=== PATIENT | male | born 1955 | race Caucasian/White ===

== ENCOUNTER 2024-03-22 12:56 | Inpatient (IN) | payer OTHER, SELFPAY ==
[2024-03-22] VITALS (27 sets, daily range): BP systolic 102–159; BP diastolic 60–102; BMI 28.5; BMI 27.9
--- NOTE | 2024-03-22 10:34 | ED.GENMED ---
History of Present Illness
General
Chief Complaint: Breathing Problem
Source: patient and spouse
Exam Limitations: none
Time Seen by Provider: 03/22/24 10:12
Nursing documentation reviewed up to this point in time: agreed with
History of Present Illness
History of Present Illness:
68 yo male with remote hx DVT, not anticoagulated, hx HLD, PNA last year presents with left lateral rib area, left shoulder pain and SOB with exertion and at rest that started 2 evenings ago. Had trouble sleeping and turning in bed due to sharp
pains in left lateral rib area. Denies n/v/d/c. Denies abdominal pain.
Had Covid vaccine 3 days ago and had general body aches, pain at the site, chills, took Tylenol and by that evening these symptoms were gone. No fever since.
Past History
Past History
ED Past Medical History: Hypercholesterolemia and Other (DVT)
ED Past Surgical History: None
Social History
Tobacco: Non-smoker
Alcohol: None
Personal:
Living: with family
Employment: Retired
Family History
Family History: Negative Early CAD or CAD
Review of Systems
Review of Systems
Allergies reviewed?: Yes
All Other Systems: ROS reviewed and negative except as documented in HPI and ROS
Constitutional: Denies fever
Respiratory: Reports trouble breathing; Denies cough
Cardiac: Reports chest pain; Denies diaphoresis, palpitations or syncope
ABD/GI: Denies abdominal pain, nausea, vomiting or diarrhea
: Denies dysuria or difficulty voiding
Musculoskeletal: Reports other (pain left lateral rib area)
Skin: Reports no symptoms
Neurological: Reports no symptoms
Phy Exam
Physical Exam
Physical Exam:
GENERAL: No acute distress. A&Ox3.
CONSTITUTIONAL: Afebrile.
EYES: Clear, conjunctivae normal
ENMT: moist mucus membranes, Pharynx nl
RESPIRATORY: Regular respirations, nonlabored, tachypneic at 24/min, lungs clear. Pulse ox 96% room air
CARDIOVASCULAR: tachycardia at 128, sinus rhythm, no murmurs, no rubs.
GI: Soft, nontender, normal BS
MUSCULOSKELETAL: Moves with ease. Well perfused.
SKIN: Warm, dry, pink
PSYCH: Normal mood and affect. Well kept, interactive and appropriate
NEUROLOGIC: Awake, alert and oriented. No focal neurological deficits
Scores
Heart Failure Risk
Heart Failure Risk Score: Not Applicable
PE Wells Score
Symptoms of DVT: No
No alternative diagnosis better explains the illness: No
Tachycardia with pulse > 100: Yes
Immobilization (>=3 days) or surgery within previous 4 weeks: No
Prior history of DVT or pulmonary embolism: Yes
Presence of hemoptysis: No
Presence of malignancy: No
Pulmonary Embolism Risk Score: 3.0
Probability of PE: Pt is moderate risk
PESI
Age: 68
Sex: Male
History of cancer: No
History of heart failure: No
History of chronic lung disease: No
Heart rate >/= 110: Yes
Systolic BP <100 mmHg: No
Respiratory rate >/= 30: No
Temperature <36�C/96.8�F: No
Altered mental status (disorientation, lethargy, stupor, or coma): No
O2 saturation <90%: No
Score: 97
Class: Class 3: <106 (moderate mortality 3.2-7.1%)
Course
Orders/Labs/Results
Orders:
Orders
03/22/24 10:12
Electrocardiogram (*1) Urgent
Reason for Study: Chest Pain
Cardiac Monitoring- Treatment ONCE
EKG- Treatment ONCE
IV Insert/Care/Rem.- Treatment PRN
03/22/24 10:30
Complete Blood Count/With Diff Urgent
Comprehensive Metabolic Panel Urgent
D-Dimer Urgent
NT-proBNP Urgent
Protime/PTT Urgent
Comment: ADD ON
Troponin I Urgent
03/22/24 11:16
CT Chest Pe Study Urgent
Comment:
Reason For Exam: elevated dimer, SOB, hx DVT
03/22/24 11:32
Add On- LAB Urgent
Tests Added?: PT/PTT
03/22/24 12:22
Heparin 8,100 units IV NOW STA
03/22/24 12:[address] Non Medication Order As Directed
Physician Order: PTT 6 hours after initial start of Heparin infusion
Above order entered?: Yes
03/22/24 12:30
Heparin 49107 Units/250 ml 25,000 units in 250 ml IV PER PROTOCOL
Weight to be used for heparin protocol in kilograms (kg):: 100.7
Protocol:: DVT/PE
PTT Goal Range to be used:: PTT 73 to 111 seconds
Order type:: Initial
INITIAL Infusion Dose (UNITS/KG/hr) & then follow protocol:: 18 units/kg/hr
Infusion Dose in UNITS/hr & then follow protocol (UNITS/hr):: 1,800
INFUSION RATE in mL/hr & then follow protocol (mL/hr):: 18
For DVT/PE algorithm, re-bolus for low PTT?: Yes
PTT less than or equal to 64 seconds:: Re-bolus 80 units/kg (max 10,000units). Increase by 400 units/hr
(+ 4mL/hr)
PTT 64.1 to 72.9 seconds:: Re-bolus 40 units/kg (max 5,000 units). Increase by 200 units/hr
(+ 2mL/hr)
PTT 73 to 111 seconds:: Target Range. No change in rate.
PTT 111.1 to 130.9 seconds:: Decrease rate by 200 units/hr (- 2 mL/hr)
PTT 131 to 199.9 seconds:: HOLD for 1 hr. Then decrease by 300 units/hr (- 3mL/hr)
PTT greater than or equal to 200 seconds:: HOLD for 2 hrs & Notify Provider. Then decrease by 400 units/hr
(- 4mL/hr)
Lab follow-up:: Each change, PTT q6h until 2 consecutive are therapeutic. Then
PTT daily.
03/22/24 12:32
Admit/Transfer Patient As Directed
Co-Sign Provider:
Level of Care: Inpatient admission
Assign to:: ICU
Physician / Group: Dr Welch
Diagnosis: Pulmonary embolism
Reason for Hospitalization: Patient presented with shortness of breath and found to have PE with right
ventricular strain
Expected length of stay greater than two midnights?: Yes
ELOS- Estimated Length of Stay in days: 2
I certify the patient meets the requirements for IP care: Yes
PRN Pain Medication Management As Directed
May give lesser potent ordered pain med per pt: Yes
preference::
Protocol:: Medication orders for pain may be administered in a
manner that supports deferring to patient preference
when the pt is:
- Requesting an ordered lesser potent pain medication.
Least to most potent pain medications are defined
as: acetaminophen < NSAID < tramadol < opioids
(morphine, oxycodone, hydromorphone).
- Requesting a lesser dose of the same medication IF
ORDERED.
- Requesting a less intrusive route of administration
if both routes are prescribed by the provider (PO <
IV).
03/22/24 12:33
Code Status As Directed
Resuscitation Status: Full Code
PULMONARY CONSULT Urgent
Consulting Provider: Asa Ybarra
Was physician already notified: Yes
Reason for consult: Mult PE's right heart strain
03/22/24 12:45
Heparin 4,000 units IV PRN PRN
Heparin 8,000 units IV PRN PRN
03/22/24 12:53
Consult Electric Truck Crane Operator [Electric Truck Crane Operator Consult] Stat
Consulting Provider: Asa Ybarra
Was physician already notified: Yes
Reason for consult: PE with right heart strain
03/22/24 15:18
Bisacodyl [Dulcolax] 10 mg RECTAL [id number] PRN
Docusate W/Senna [Senokot-S] 1 tablet PO BIDPRN PRN
Polyethylene Glycol Powder [Miralax] 17 grams PO DAILYPRN PRN
03/22/24 15:18
Heparin Protocol- PTT Orders As Directed
PTT per Heparin protocol: -Obtain CBC and baseline PTT - if not already collected.
-Obtain PTT 6 hours from start of infusion. Then, every 6 hours until 2 consecutive
PTT's are therapeutic. Then, PTT Daily.
-With each rate change, obtain PTT every 6 hours until 2 consecutive PTT's are
therapeutic. Then, PTT Daily.
Activity As Directed
Activity Level: Bedrest for limited time
Bedrest duration in hours then activity as indicated above:: 24
Notify MD As Directed
Notify physician if: PTT is greater than or equal to 200.
Vital Signs As Directed
Frequency: Per unit guidelines
03/23/24 02:11
Basic Metabolic Panel IN AM
Complete Blood Count/With Diff IN AM
03/24/24 06:00
Complete Blood Count/No Diff Q2D
Comment: notify provider: Platelet count < 130,000 or decrease by 50% from baseline
03/26/24 06:00
Complete Blood Count/No Diff Q2D
Comment: notify provider: Platelet count < 130,000 or decrease by 50% from baseline
03/28/24 06:00
Complete Blood Count/No Diff Q2D
Comment: notify provider: Platelet count < 130,000 or decrease by 50% from baseline
03/30/24 06:00
Complete Blood Count/No Diff Q2D
Comment: notify provider: Platelet count < 130,000 or decrease by 50% from baseline
04/01/24 06:00
Complete Blood Count/No Diff Q2D
Comment: notify provider: Platelet count < 130,000 or decrease by 50% from baseline
04/03/24 06:00
Complete Blood Count/No Diff Q2D
Comment: notify provider: Platelet count < 130,000 or decrease by 50% from baseline
04/05/24 06:00
Complete Blood Count/No Diff Q2D
Comment: notify provider: Platelet count < 130,000 or decrease by 50% from baseline
04/07/24 06:00
Complete Blood Count/No Diff Q2D
Comment: notify provider: Platelet count < 130,000 or decrease by 50% from baseline
Abnormal Lab Results
03/22/24
10:30
RBC 4.37 L 10^6/uL
(4.70-6.10)
Hct 37.5 L %
(39.0-52.0)
MPV 11.1 H fL
(7.4-10.4)
Absolute Lymphs (auto) 0.7 L 10^3/uL
(1.2-3.4)
Neutrophils % 80.5 H %
(42.2-75.2)
Lymphocytes % 10.9 L %
(20.5-51.1)
PT 15.1 H Sec
(11.4-14.6)
D-Dimer 2.56 H ug/mlFEU
(0.00-0.50)
Glucose 192 H mg/dl
(70-99)
03/22/24 10:30
03/22/24 10:30
Vital Signs
Initial and Last Documented VS:
Initial Vital Signs
Temp Pulse Resp BP Pulse Ox
98.7 F 127 24 133/90 96
03/22/24 09:43 03/22/24 09:43 03/22/24 09:43 03/22/24 09:43 03/22/24 09:43
Last Documented Vital Signs
Temp Pulse Resp BP Pulse Ox
100 F 98 20 125/74 94
03/23/24 19:25 03/23/24 19:25 03/23/24 19:25 03/23/24 19:25 03/23/24 19:25
Lead Cargoman consulted with Physician
Lead Cargoman consulted with physician?: Yes
Name of Physician Consulted: Noh
MDM/Problems Addressed
Differential Diagnosis Includes:
PE, PNA, ACS
MDM/Problems Addressed:
68 yo male with remote hx DVT, not anticoagulated, hx HLD, PNA last year presents with left lateral rib area, left shoulder pain and SOB with exertion and at rest that started 2 evenings ago. Had trouble sleeping and turning in bed due to sharp
pains in left lateral rib area. Denies n/v/d/c. Denies abdominal pain.
Had Covid vaccine 3 days ago and had general body aches, pain at the site, chills, took Tylenol and by that evening these symptoms were gone. No fever since.
Patient is tachycardic and tachypneic, pulse ox 96% room air, afebrile, hemodynamically stable.
10:40 a.m.
SOB, Pleuritic CP, Tachypnea, hx DVT high index of suspicion for PE
O2 2L NC ordered for pulse ox 91% RA, no other change in reassessment
EKG: S1Q3T3 noted
11:15 AM
D-dimer elevated, 2.56, chest PE study ordered, patient and informed. Patient remained stable.
CBC with no clinically significant abnormality
CMP: No clinically significant abnormality
Troponin WLN
BNP WNL
12:15 PM:
Received the following text from the radiologist regarding the PE study: CT demonstrates bilateral pulmonary emboli with right heart strain
Left lower lobe pneumonia versus pulmonary infarction with plural effusion
Pt and notified.
PERT alert called
Heparin protocol instituted, I spoke with
Spoke with on-call pulmonary Dr. Leon, informed of radiology text, he states he will see pt he does not recommend thrombectomy or IV TPA at this time
Pt remains stable
Hospitalist notified of admission
12:[address] Leon at bedside
*Pulse Oximetry
Patient hypoxic: yes
Comment: 92% RA
*EKG
Interpreted by ED Provider?: Yes
EKG Intrepretation Date: 03/22/24
EKG Intrepretation Time: 10:22
Interpretation: abnormal
Heart Rate: 110
Rate: tachycardiac
Rhythm: sinus
[place]: normal axis
Interval: normal interval
QRS Pattern: normal QRS
Ischemia: other (S1Q3T3 Noted)
*Critical Care Note
Total Time (30-74mins, 75-104mins- exclusive of procedures): Not Applicable
ED Attending Note
-
Portions of this chart may have been created with voice recognition software.� Occasional wrong word or��sound alike� substitutions may have occurred due to the inherent limitations of voice recognition software.
Discharge Plan
Departure
Patient Disposition: Admit
Date of Disposition: 03/22/24
Time of Disposition: 12:28
Admit to: ICU
Presentation/result/management discussed w/ accepting MD/DO: Hospitalist
Condition: Serious
Discharge Problem:
Bilateral pulmonary embolism
Interventions
Interventions:
*Risk Screen - Suicide Last Done: 03/22/24 09:43
*General Assessment Last Done: 03/22/24 09:43
*Neglect/Abuse Screening Last Done: 03/22/24 09:43
ED- Fall Risk Assessment Last Done: 03/22/24 10:05
*ED COVID-19 Vaccine History Last Done: 03/22/24 10:03
*Nursing Disposition Last Done: 03/22/24 15:05
ED- Cardiac Assessment Last Done: 03/22/24 10:05
ED- Pulmonary Assessment Last Done: 03/22/24 10:05
Discharge Date and Time
Discharge Date/Time: 03/22/24 15:06
[2024-03-22 10:42] LABS: % Basophils 0.2 % (0-2); % Eosinophils 0.2 % (0-6); % Immature Granulocytes 0.3 % (0-0.5); % Lymphocytes 10.9 % (20.5-51.1); % Monocytes 7.9 % (1.7-9.3); % Neutrophils 80.5 % (42.2-75.2); Absolute Lymphocytes 0.7 10^3/uL (1.2-3.4); Absolute Monocytes 0.5 10^3/uL (0.1-0.6); Absolute Neutrophils 5.3 10^3/uL (1.4-6.5); Hematocrit 37.5 % (39.0-52.0); Hemoglobin 13.2 g/dL (13.0-18.0); Mean Corp Hgb Conc. 35.2 g/dL (33.0-37.0); Mean Corpuscular Hgb 30.2 pg (27.0-31.0); Mean Corpuscular Volume 85.8 fL (80.0-94.0); Mean Platelet Volume 11.1 fL (7.4-10.4); Nucleated Red Blood Cells % 0 % (-); Platelet Count 161 10^3/uL (130-400); Red Blood Cell Count 4.37 10^6/uL (4.70-6.10); Red Cell Dist. Width 13.8 % (11.5-14.5); White Blood Cell Count 6.6 10^3/uL (4.8-10.8)
[2024-03-22 10:56] LABS: ALT (SGPT) 45 U/L (0-50); AST (SGOT) 49 U/L (17-59); Albumin 3.8 g/dl (3.5-5.0); Alkaline Phosphatase 70 U/L (38-126); Blood Urea Nitrogen 12 mg/dl (9-20); Calcium 8.8 mg/dl (8.4-10.2); Carbon Dioxide 22 mmol/L (22-30); Chloride 106 mmol/L (98-107); Glucose 192 mg/dl (70-99); Potassium 3.9 mmol/L (3.5-5.1); Sodium 142 mmol/L (135-145); Total Bilirubin 0.8 mg/dl (0.2-1.3); Total Protein 6.6 g/dl (6.3-8.2); eGFR > 60.00
--- NOTE | 2024-03-22 11:00 | EDRN ---
Pt placed on oxygen at 10:45 at 2lpm via NC.
[2024-03-22 11:06] LABS: D-Dimer 2.56 ug/mlFEU (0.00-0.50)
[2024-03-22 11:07] LABS: NT-proBNP < 20.0 pg/ml; Troponin I < 0.012 ng/ml
--- NOTE | 2024-03-22 11:18 | EDRN ---
Inocencia Killian STAGING TECHNICIAN in to inform pt that he will have a CT PE study.
[2024-03-22 11:44] LABS: INR 1.21; PT 15.1 Sec (11.4-14.6)
[2024-03-22 11:45] LABS: APTT 30.4 Sec (23.4-35.0)
--- NOTE | 2024-03-22 12:08 | EDRN ---
Pt OOB to BR and upon return to stretcher was very tachypneic w/ increased WOB.
--- NOTE | 2024-03-22 12:34 | HPS.HSE ---
Family Physician
-
Family Physician: Virgil Barrett
Chief Complaint
-
Shortness of breath
History of Present Illness
Patient is 68 years old male history of dyslipidemia, obesity, factor V Leiden deficiency came into the hospital with shortness of breath. Patient states he had COVID shot on Sunday and since then he has been feeling not himself and over the
last few days with some shortness of breath and pleuritic discomfort when deep breathing. He had an episode of left lower extremity DVT 6 years ago for which she was treated with warfarin for 6 months and was felt to be related to decreased
mobility. Patient denies any fevers or chills at this time or nausea vomiting or diarrhea. Denies any fevers or chills. In the ER, he had a CTA of chest with bilateral pulmonary emboli associated with right heart strain. PERT alert was
activated. He was referred to hospitalist service for further evaluation.
Medical History
Past Medical History
Past Medical History: Reports Other (DVT in the past, factor V Leiden, dyslipidemia, obesity.)
Past Surgical History: Reports None
Social History
Tobacco: Non-smoker
Alcohol: None
Drug: None
Family History
Family History: Other (History of factor V Leiden on his mother.)
Allergies / Home Medications
Allergies reflects when Allergies were last updated in [facility].
Home Medications with original date entered in [facility]
Allergy/Medication List:
Allergies
Allergy/AdvReac Type Severity Reaction Status Date / Time
No Known Allergies Allergy Verified 03/22/24 09:42
Home Medications
cetirizine 10 mg tablet (Zyrtec) 10 mg PO DAILYPRN PRN allergies 04/04/23
simvastatin 20 mg tablet 20 mg PO QPM 04/04/23
therapeutic multivitamin 1 tab PO DAILY 04/04/23
acetaminophen 325 mg tablet (Tylenol) 650 mg PO Q6HPRN PRN mild pain 03/22/24
Review of Systems
-
A 12 point ROS was completed and negative except as noted: Yes
Physical Exam
Vital Signs
Vital Signs
Temp Pulse Resp BP Pulse Ox
98.7 F 110 27 135/102 95
03/22/24 09:43 03/22/24 12:10 03/22/24 12:10 03/22/24 12:10 03/22/24 12:10
Physical exam:
General: Acutely ill
HEENT: Normocephalic, Atraumatic and Moist Mucous Membranes
Respiratory: Clear to Auscultation; Negative Wheezes, Rales or Rhonchi
Cardiac: Regular Rhythm and tachycardic and S1/S2
GI: Soft, Nontender and Nondistended
Musculoskeletal: No Clubbing, No Cyanosis and No Edema
Neuro: Awake, Alert and Oriented
Psych: Calm
Physical Exam
General: Other
Laboratory Results
-
03/22/24 10:30
03/22/24 10:30
Laboratory Results
PT 15.1 Sec (11.4-14.6) H 03/22/24 10:30
INR 1.21 03/22/24 10:30
APTT 30.4 Sec (23.4-35.0) 03/22/24 10:30
Total Bilirubin 0.8 mg/dl (0.2-1.3) 03/22/24 10:30
AST 49 U/L (17-59) 03/22/24 10:30
ALT 45 U/L (0-50) 03/22/24 10:30
Alkaline Phosphatase 70 U/L (38-126) 03/22/24 10:30
Troponin I < 0.012 ng/ml 03/22/24 10:30
Data Reviewed
-
CT Scan: Image Personally Visualized and interpreted
Lab Data: Labs Reviewed by me
Impression/Plan
-
IMPRESSION:
Patient is 68 years old male with history of factor V deficiency came to the hospital with dyspnea and found to have bilateral PE with right heart strain. Patient at risk of hemodynamic instability and progression of VTE. And risk morbidity
mortality due to acute presentation. He is critically ill and will be admitted to ICU.
PLAN:
Bilateral PE with heart rate strain:
IV heparin drip
Keep n.p.o. until known if requires any procedures
IV fluid
Might require IV thrombolytics
Seen and reviewed CT scan of the chest consistent with bilateral PE
Operating Room Surgical Technologist/pulmonary consult-discussed with school attendance secretary via [place] text today
Factor V deficiency:
Will need to obtain old records
Dyslipidemia:
Will resume statin when taking oral
Obesity:
Lifestyle changes modification
Total Critical Care Time__40___ minutes. I was immediately available to the patient and staff. I personally examined, reviewed labs, diagnostic images/reports, interpretations, treatment plans, discussed patient care with other providers and
family or caregivers (if patient is unable to make decisions), entered orders as appropriate and documented the medical record.
--- NOTE | 2024-03-22 12:40 | EDRN ---
Dr. Welch in room w/ pt at this time.
[2024-03-22] MEDS: HEPARIN 8100 UNITS IV (13:25)
[2024-03-22] MEDS: HEPARIN 25000 UNITS/250 ML IV (13:28)
[2024-03-22] MEDS: LR 1000 IV (13:43)
--- NOTE | 2024-03-22 13:50 | EDRN ---
Pt stood to void at stretcher side and HR increased to 145, Resp rate upto 34 and pt on returning to lie down was w/ increased WOB and using accessory muscles to breathe.
--- NOTE | 2024-03-22 14:55 | EDRN ---
Report called to [facility] JOCKEYPACO Roberson.
--- NOTE | 2024-03-22 17:00 | PTCARENOTE ---
Pt received from ED via stretcher; transferred over to unit bed by nursing staff. AAOx3. Reporting tolerable 2/10 pain at upper left lateral chest. Hard of hearing with hearing aids in place. Sinus tach on monitoring manager. HR: 100s - 110s at rest.
Trace pitting LE edema. Palpable radial and pedal pulses. SaO2 94% on 2L NC. Tachypneic, RODRIGEZ, shallow breaths. (+) bowel sounds. Pt expressing appetite. Heparin gtt infusing @ 1800 units/hr LR infusing @ 85ml/hr. Pt advanced from NPO to regular diet.
--- NOTE | 2024-03-22 17:24 | CON.INTV ---
Consultation
Consultation Request
Date/Time Consultation Requested: 03/22/2024
Date/Time Consultation Performed: 03/22/2024
Requesting Provider: Dr. Welch
Performing Provider: Dr. Asa Lawton
Reason for Consultation: Acute pulmonary embolism
Medical History
-
History of Present Illness:
68-year-old man with history of dyslipidemia, obesity, factor V Leiden deficiency came to the hospital complaining of progressive shortness of breath. Patient reports having COVID vaccine last Sunday and since then he has been feeling not
himself and over the last few days with some shortness of breath and pleuritic chest discomfort.
He does report prior DVT 6 years ago for which treated for 6 months of anticoagulation. Evaluation including a CT angiogram of the chest that demonstrated bilateral pulmonary embolism with right ventricular strain.
Patient does report that shortness of breath started about 1 month and a half ago. Just worse over the last several days associated with pleuritic type chest pain.
Denies any leg edema
Past Medical History
Past Medical History: Other (See assessment and plan factor V Leiden deficiency)
Social History
Tobacco: Non-smoker
Alcohol: None
Drug: None
Family History
Family History: Reviewed & Not Pertinent
Allergies / Home Medications
Allergies
Allergy/AdvReac Type Severity Reaction Status Date / Time
No Known Allergies Allergy Verified 03/22/24 09:42
Home Medications
�Medication �Instructions �Recorded �Confirmed �Last Taken �Type
cetirizine 10 mg tablet (Zyrtec) 10 mg PO DAILYPRN PRN allergies 04/04/23 03/22/24 03/21/24 History
simvastatin 20 mg tablet 20 mg PO QPM 04/04/23 03/22/24 03/21/24 History
therapeutic multivitamin 1 tab PO DAILY 04/04/23 03/22/24 03/22/24 History
acetaminophen 325 mg tablet 650 mg PO Q6HPRN PRN mild pain 03/22/24 03/22/24 03/21/24 History
(Tylenol)
Review of Systems
-
History Source: Patient
All other systems: Negative unless noted
Vitals / Labs / Diagnostic Testing
Vital Signs
Temp Pulse Resp BP Pulse Ox
98.7 F 112 28 142/91 92
03/22/24 09:43 03/22/24 17:00 03/22/24 17:00 03/22/24 17:00 03/22/24 17:00
Lab Data
03/22/24 10:30
03/22/24 10:30
Laboratory Results
03/22/24 03/22/24
10:30 12:23
PT 15.1 H
INR 1.21
APTT 30.4 Cancelled
Diagnostic Testing:
Physical Exam
-
HEENT: Normocephalic
Cardiovascular: S1/S2
Respiratory: Clear and Non-Labored Respirations
GI: Soft and Non Distended
Neurology: Awake, Oriented and AO x 3
Skin: Warm
General: Comfortable
Assessment
-
Acute pulmonary embolism-unprovoked
CT angiogram reviewed: Peripheral bilateral pulmonary embolism. No central component. Possible RV strain
Recent COVID-vaccine
Negative troponin
Normal proBNP
Pleuritic type pain: Infiltrates on CAT scan suggestive of pulmonary infarct. Associated left pleural effusion.
Conditions present prior admission:
Dyslipidemia
Obesity
Factor V Leiden deficiency
Assessment and plan:
Bilateral pulmonary embolism with associated significant pleuritic type chest pain. Mild RV strain.
On further discussion symptoms have been more subacute. Started about 1 month and a half ago. Progressive shortness of breath. Worsened over the last 4 to 6 days associated with pleuritic type chest pain.
Mildly tachycardic
Normotensive
No significant oxygen requirements
-
Patient reports that symptoms started after obtaining COVID-vaccine recently.
Prior history of distant DVT 6 years ago for which he completed 6 months of anticoagulation. Has history of factor V Leiden deficiency.
No other risk factors other than obesity.
No family history
Reports being up-to-date with sex/age-appropriate cancer screening
-
At this point did not recommend thrombolysis.
Oxygen for mentation as needed
Monitor hemodynamics
Continue heparin drip-follow PTT.
Hopefully can transition to Oral anticoagulation in the next 24 to 48 hours depending on symptoms/clinical situation
will check lower extremity Doppler
-
Analgesia for pleuritic type chest pain
Follow pleural effusion-will repeat chest x-ray in 48 hours.
Eventually will need repeat imaging of the chest to document resolution of infiltrates that are likely pulmonary infarcts.
-
Will follow

Data reviewed:
-
CT [id number]/2024:
1). There are bilateral peripheral pulmonary emboli associated with right heart strain.There are bilateral peripheral pulmonary emboli involving right lower lobe, left lower lobe, right middle lobe and right upper lobe branches. No central component
2). There is moderate confluent parenchymal airspace disease at the basilar portions of the lingula and left lower lobe which may be pulmonary infarction or pneumonia with small associated left pleural effusion
3). There is interstitial airspace disease at the right lung base which may be dependent atelectasis or less likely pulmonary infarct
-
CT chest 04/04/2023:
1. No evidence of pulmonary embolism or thoracic aortic dissection.
2. Mild airspace consolidation within the left lower lobe, which may represent pneumonia or subsegmental atelectasis. Small adjacent left pleural effusion.
3. Hazy groundglass opacity within the lingular segment, also suggestive of infectious or inflammatory alveolitis.
4. Mild right basilar subsegmental atelectasis.
5. Anterior wedging of several midthoracic vertebral bodies, which may represent acute or chronic compression fractures. Please correlate with symptoms in this area.
[2024-03-22] MEDS: LIPITOR 10 MG PO (17:44)
[2024-03-22] MEDS: TYLENOL 650 MG PO (19:54)
[2024-03-22 20:06] LABS: APTT 104.4 Sec (23.4-35.0)
[2024-03-23] VITALS (17 sets, daily range): BP systolic 106–160; BP diastolic 59–93; BMI 27.7
[2024-03-23] MEDS: LR 1000 IV (01:30)
[2024-03-23 02:29] LABS: % Basophils 0.5 % (0-2); % Eosinophils 0.9 % (0-6); % Immature Granulocytes 0.3 % (0-0.5); % Lymphocytes 21.3 % (20.5-51.1); % Monocytes 12.3 % (1.7-9.3); % Neutrophils 64.7 % (42.2-75.2); Absolute Eosinophils 0.1 10^3/uL (0-0.7); Absolute Lymphocytes 1.4 10^3/uL (1.2-3.4); Absolute Monocytes 0.8 10^3/uL (0.1-0.6); Absolute Neutrophils 4.3 10^3/uL (1.4-6.5); Hematocrit 33.3 % (39.0-52.0); Hemoglobin 11.9 g/dL (13.0-18.0); Mean Corp Hgb Conc. 35.7 g/dL (33.0-37.0); Mean Corpuscular Hgb 30.3 pg (27.0-31.0); Mean Corpuscular Volume 84.7 fL (80.0-94.0); Mean Platelet Volume 11.6 fL (7.4-10.4); Nucleated Red Blood Cells % 0 % (-); Platelet Count 166 10^3/uL (130-400); Red Blood Cell Count 3.93 10^6/uL (4.70-6.10); Red Cell Dist. Width 13.9 % (11.5-14.5); White Blood Cell Count 6.6 10^3/uL (4.8-10.8)
[2024-03-23 02:37] LABS: APTT 117.2 Sec (23.4-35.0)
[2024-03-23 03:00] LABS: Blood Urea Nitrogen 12 mg/dl (9-20); Calcium 8.2 mg/dl (8.4-10.2); Carbon Dioxide 23 mmol/L (22-30); Chloride 107 mmol/L (98-107); Estimated Creatinine Clearance 93 ml/min; Glucose 131 mg/dl (70-99); Potassium 3.7 mmol/L (3.5-5.1); Sodium 140 mmol/L (135-145); eGFR > 60.00
--- NOTE | 2024-03-23 04:51 | PTCARENOTE ---
Initial assessment as documented. Pt desat to 87% while asleep on 2L NC, increased to 4L. Breath sounds clear/diminished. Pain 2/10 at times, worse with movement. Heparin gtt titrated as ordered. Safe environment maintained, call gomez within reach.
[2024-03-23] MEDS: TYLENOL 650 MG PO (07:31)
--- NOTE | 2024-03-23 08:13 | W.PN.HOSP.TC ---
Addendum entered and electronically signed by Shree Welch MD 03/25/24 09:01:
B/L PE with Right Heart Strain only
Original Note:
Today's Communication/Plan
-
Anticoagulation. Wean oxygen.
Assessment / Plan
Assessment / Plan
Physical exam:
General: Acutely ill but nontoxic appearance
HEENT: Normocephalic, Atraumatic and Moist Mucous Membranes
Respiratory: Clear to Auscultation; Negative Wheezes, Rales or Rhonchi
Cardiac: Regular Rhythm and S1/S2
GI: Soft, Nontender and Nondistended
Musculoskeletal: No Clubbing, No Cyanosis and No Edema
Neuro: Awake, Alert and Oriented
Psych: Calm
A/P:
Bilateral PE with possible heart rate strain:
Continue IV heparin drip and can transition to oral anticoagulant tomorrow
Per pulmonary suspicion for subacute and no need for thrombolytics
He has remained hemodynamically stable
Transfer out of ICU today
Checking Doppler lower extremities--> negative for DVT
Stop IV fluids
Appreciated pulmonary consult
Chest pain related to above and possible right infarcts:
Analgesia as needed
Acute hypoxic respiratory insufficiency:
Continue anticoagulation
Wean oxygen-currently on 4 L
Incentive spirometry
PT eval
Left Pleural effusion:
Plan to repeat chest x-ray tomorrow to reevaluate
Factor V Leiden deficiency:
Will need to obtain old records
Elevated blood pressure readings:
No need for any antihypertensive at the moment and discussed with patient.
Also avoid hypotension in the setting of PE.
Will reevaluate and if persistent would reconsider.
Hyperlipidemia:
Continue statins
Obesity:
Lifestyle changes modification
DVT prophylaxis:
Currently on treatment
CODE STATUS:
Full code
Time spent 52 min
Anticipated Discharge: 24 - 48 hours
Subjective/Interval History
-
Date of Service: March 23, 2024
Patient feels better overall. Less shortness of breath. Still remains on oxygen about 4 L
Objective Data
-
Labs:
Laboratory Results
03/23/24 03/23/24
02:11 08:45
WBC 6.6
Hgb 11.9 L
Hct 33.3 L
Plt Count 166
APTT 117.2 H Pending
Sodium 140
Potassium 3.7
Chloride 107
Carbon Dioxide 23
BUN 12
Creatinine 0.9
Glucose 131 H
Calcium 8.2 L
Vital Signs:
Vital Signs
Temp Pulse Resp BP Pulse Ox
98.4 F 90 22 137/85 93
03/23/24 05:19 03/23/24 06:45 03/23/24 06:45 03/23/24 06:00 03/23/24 06:45
I&O
03/22/24 03/23/24 03/24/24
06:59 06:59 06:59
Intake Total 1771 / 1771
Output Total 550 / 550
Balance 1221 / 1221
[2024-03-23 09:03] LABS: APTT 87.8 Sec (23.4-35.0)
--- NOTE | 2024-03-23 09:23 | PTCARENOTE ---
Pt received in bed @ 0700. AAOx3. PRN Tylenol administered for 2/10 left upper lateral chest wall pain. Sinus tach on monitoring tech. HR 100s - 110s at rest. Stood at bedside to urinate; HR to 120s. SaO2 93% on 4L NC. Shallow breaths. Tachypneic.
Dyspneic on exertion. RR 20s - 30s. Good appetite. Ate 100% of dinner. (+) bowel sounds. Stood at bedside to urinate 225ml phil urine. Heparin gtt infusing @ 1600ml/hr. Next PTT for 15:30. LR @ 85ml/hr D/C'd.
--- NOTE | 2024-03-23 10:11 | W.PN.INTV ---
Today's Communication / Plan
Recommendations
Continue heparin drip
Follow PTT
Analgesia for pleuritic type chest pain
Repeat chest x-ray tomorrow
Hopefully transition to oral anticoagulants 03/24/2024
Transferred to telemetry
Assessment
-
68-year-old man with history of distant DVT, history of factor V Leiden deficiency. Not on chronic anticoagulation. Came complaining of 1 month history of progressive shortness of breath. Pleuritic type chest pain, shortness of breath. Found to
have acute bilateral pulmonary embolism on CT angiogram as well as possible left lower lobe pulmonary infarct
Acute pulmonary embolism-unprovoked
CT angiogram reviewed: Peripheral bilateral pulmonary embolism. No central component. Possible RV strain
Recent COVID-vaccine
Negative troponin
Normal proBNP
Pleuritic type pain: Infiltrates on CAT scan suggestive of pulmonary infarct. Associated left pleural effusion.
Conditions present prior admission:
Dyslipidemia
Obesity
Factor V Leiden deficiency
Assessment and plan:
Bilateral pulmonary embolism with associated significant pleuritic type chest pain. Mild RV strain.
On further discussion symptoms have been more subacute. Started about 1 month and a half ago. Progressive shortness of breath. Worsened over the last 4 to 6 days associated with pleuritic type chest pain.
Mild sinus tachycardia
Normotensive-has remained hemodynamically stable through the hospital stay
Minimal oxygen requirements-not worsening.
-
Patient reports that symptoms worsened after obtaining COVID-vaccine 4 to 5 days ago.
Prior history of distant DVT 6 years ago for which he completed 6 months of anticoagulation. Has history of factor V Leiden deficiency.
Multiple family members with factor V Leiden deficiency.
Reports being up-to-date with sex/age-appropriate cancer screening
-
Discussed with patient risks and benefits of thrombolysis. Based on CT scanning appearance, negative cardiac biomarkers, no hemodynamic instability we opted not to proceed with thrombolysis.
Lower extremity Dopplers: Negative for DVT bilaterally.
Patient understood.
Wean down oxygen as able. Home oxygen assessment before discharge. Part of his hypoxemia is to left lower lobe pulmonary infarct with associated mild pleural effusion.
Monitor hemodynamics-Telemetry
Continue heparin drip-follow PTT.
Hopefully can transition to oral anticoagulants 03/24/2024 if patient improved.
-
Analgesia for pleuritic type chest pain-improved.
Repeat chest x-ray tomorrow 03/24/2024 to follow-up on left pleural effusion.
Eventually will need repeat imaging of the chest to document resolution of infiltrates that are likely pulmonary infarcts. Information has been left in the chart for follow-up
-
Will follow
Transfer to telemetry today 03/23/2024

Data reviewed:
-
CT /12/2024:
1). There are bilateral peripheral pulmonary emboli associated with right heart strain.There are bilateral peripheral pulmonary emboli involving right lower lobe, left lower lobe, right middle lobe and right upper lobe branches. No central component
2). There is moderate confluent parenchymal airspace disease at the basilar portions of the lingula and left lower lobe which may be pulmonary infarction or pneumonia with small associated left pleural effusion
3). There is interstitial airspace disease at the right lung base which may be dependent atelectasis or less likely pulmonary infarct
-
CT chest 04/04/2023:
1. No evidence of pulmonary embolism or thoracic aortic dissection.
2. Mild airspace consolidation within the left lower lobe, which may represent pneumonia or subsegmental atelectasis. Small adjacent left pleural effusion.
3. Hazy groundglass opacity within the lingular segment, also suggestive of infectious or inflammatory alveolitis.
4. Mild right basilar subsegmental atelectasis.
5. Anterior wedging of several midthoracic vertebral bodies, which may represent acute or chronic compression fractures. Please correlate with symptoms in this area.
Subjective Dataa
Subjective Data
Date of Service:
Date of Service: March 23, 2024
Chief Complaint: [employer] Follow Up (Acute pulmonary embolism)
Subjective:
Reports improvement pleuritic type chest pain
Denies shortness of breath with light activity
Sinus tachycardia improved
Denies hemoptysis
Denies leg edema
Review of Systems
Cardiopulmonary: Dyspnea (None at breast)
GI: Abdominal Pain (n), Nausea (n) and Vomiting (n)
Objective Data
Data Reviewed
Vital Signs / I&O / Oxygen:
Vital Signs
Temp Pulse Resp BP Pulse Ox
98.0 F 90 22 137/85 93
03/23/24 08:59 03/23/24 06:45 03/23/24 06:45 03/23/24 06:00 03/23/24 08:59
Intake and Output
03/22/24 03/23/24 03/24/24
06:59 06:59 06:59
Intake Total 1771 / 1872 404 / 404
Output Total 550 / 550 225 / 225
Balance 1221 / 1322 179 / 179
SaO2 93
Nasal Cannula flow liters per 4
minute
Physical Exam
General: Comfortable
HEENT: Normocephalic
Cardiovascular: S1-S2
Respiratory: Wheeze (n) and Other (Decreased breath sounds on the left.)
GI: Soft, Non Distended and Non Tender
Neurology: Awake, Alert, Oriented and No Motor Deficits
Skin: Warm
Labs/Micro/Reports
Lab Data
03/23/24 02:11
03/23/24 02:11
Laboratory Results
03/22/24 03/22/24 03/22/24
10:30 12:23 19:46
PT 15.1 H
INR 1.21
APTT 30.4 Cancelled 104.4 H
03/23/24 03/23/24
02:11 08:44
PT
INR
APTT 117.2 H 87.8 H
--- NOTE | 2024-03-23 10:55 | PTCARENOTE ---
Heparin gtt continues @ 1600 units/hr. Incentive spirometer given to patient and education provided. 2,000ml witnessed. Pt downgraded to telemetry.
--- NOTE | 2024-03-23 15:45 | PTCARENOTE ---
pt arrives at 1345 from the ICU with heparin drip running at 1600 units/hr into RFA. pt aaox3 with stable vitals on 4L NC. pt reports overall his respiratory symptoms and pain on left side have subsided and have improved from yesterday, even
improved compared to this Am. pt oriented to department. assessment completed, on pvc monitor with call gomez within reach. stand by assistance provided to ensure safety. care plan continues to be followed.
[2024-03-23 15:50] LABS: APTT 66.6 Sec (23.4-35.0)
[2024-03-23] MEDS: HEPARIN 4000 UNITS IV (15:59)
[2024-03-23] MEDS: LIPITOR 10 MG PO (17:05)
[2024-03-23] MEDS: HEPARIN 25000 UNITS/250 ML IV (20:14)
[2024-03-23 22:24] LABS: APTT 92.4 Sec (23.4-35.0)
[2024-03-24] VITALS (7 sets, daily range): BP systolic 111–132; BP diastolic 67–79; PULSE 97; O2SAT 93
[2024-03-24 04:47] LABS: Hematocrit 33.5 % (39.0-52.0); Hemoglobin 11.9 g/dL (13.0-18.0); Mean Corp Hgb Conc. 35.5 g/dL (33.0-37.0); Mean Corpuscular Hgb 30.4 pg (27.0-31.0); Mean Corpuscular Volume 85.5 fL (80.0-94.0); Platelet Count 164 10^3/uL (130-400); Red Blood Cell Count 3.92 10^6/uL (4.70-6.10); Red Cell Dist. Width 13.7 % (11.5-14.5); White Blood Cell Count 5.9 10^3/uL (4.8-10.8)
[2024-03-24 05:08] LABS: APTT 79.8 Sec (23.4-35.0)
--- NOTE | 2024-03-24 07:39 | W.PN.PUL3 ---
Today's Communication / Plan
-
Continue with parenteral systemic anticoagulation and okay to transition to NOAC today
Case management consult to find if NOAC is affordable (preferred to start Eliquis)
Echo today with mild pulmonary hypertension - repeat echo in 4-6 weeks
Repeat imaging with CXR versus CT chest without contrast in 4 to 6 weeks to follow-up bilateral lower lobe infiltrates and LLL-pleural effusion, likely due to atelectasis
PT/OT
Pain control
Outpatient hematology consult given history of factor V Leiden and now with acute bilateral PE
Will also arrange for outpatient pulmonary follow-up for full PFTs
Wean down O2 as tolerated with goal SpO2 90% or greater; check home O2 assessment prior to discharge
Assessment
-
68-year-old man with history of distant DVT, history of factor V Leiden deficiency. Not on chronic anticoagulation. Came complaining of 1 month history of progressive shortness of breath. Pleuritic type chest pain, shortness of breath. Found to
have acute bilateral pulmonary embolism on CT angiogram as well as possible left lower lobe pulmonary infarct
Impression:
Acute pulmonary embolism-unprovoked with hx of factor V leiden
CT angiogram reviewed: Peripheral bilateral pulmonary embolism with RV strain. No central component
Recent COVID-vaccine
Negative troponin
Normal proBNP
Pleuritic type pain: Infiltrates on CAT scan suggestive of pulmonary infarct. Associated left pleural effusion.
Conditions present prior admission:
Dyslipidemia
Obesity
Factor V Leiden Leiden
Assessment and plan:
Bilateral pulmonary embolism with associated significant pleuritic type chest pain. Mild RV strain.
On further discussion symptoms have been more subacute. Started about 1 month and a half ago. Progressive shortness of breath. Worsened over the last 4 to 6 days associated with pleuritic type chest pain.
No recent long car trips or plane rides; he denies currently having a sedentary lifestyle, and no personal history of malignancy
He has a history of factor V Leiden and does not follow with hematology
Mild sinus tachycardia
Normotensive-has remained hemodynamically stable through the hospital stay
Minimal oxygen requirements-not worsening.
-
Patient reports that symptoms worsened after obtaining COVID-vaccine 4 to 5 days ago.
Prior history of distant LLE DVT 6 years ago for which he completed 6 months of anticoagulation. Has history of factor V Leiden deficiency.
Multiple family members with factor V Leiden deficiency.
Reports being up-to-date with sex/age-appropriate cancer screening
-
Discussed with patient risks and benefits of thrombolysis. Based on CT scanning appearance, negative cardiac biomarkers, no hemodynamic instability we opted not to proceed with thrombolysis.
Lower extremity Dopplers: Negative for DVT bilaterally.
Wean down oxygen as able. Home oxygen assessment before discharge. Part of his hypoxemia is due to left lower lobe pulmonary infarct with associated mild pleural effusion.
Monitor hemodynamics-Telemetry
Continue heparin drip-follow PTT --> can transition to NOAC today assuming case management assist with findings affordable agent (prefer to start eliquis)
Echo performed today (03/24/2024) shows normal RV size and function with mild pulmonary hypertension with PASP 25-30 mmHg assuming an RAP of 3 mmHg --> repeat echo in 4-6 weeks
-
Analgesia for pleuritic type chest pain-improved.
Repeat CXR today (03/24/2024) shows mildly improved left-sided pleural effusion with persistent opacification in the left lower hemithorax; also increased parenchymal opacification of the right lower lobe, likely atelectasis
Eventually will need repeat imaging of the chest to document resolution of infiltrates that are likely pulmonary infarcts. Information has been left in the chart for follow-up
-
pulmonary service will continue to follow

Data reviewed:
-
CTA Chest 03/22/2024:
1). There are bilateral peripheral pulmonary emboli associated with right heart strain.There are bilateral peripheral pulmonary emboli involving right lower lobe, left lower lobe, right middle lobe and right upper lobe branches. No central component
2). There is moderate confluent parenchymal airspace disease at the basilar portions of the lingula and left lower lobe which may be pulmonary infarction or pneumonia with small associated left pleural effusion
3). There is interstitial airspace disease at the right lung base which may be dependent atelectasis or less likely pulmonary infarct
-
CT chest 04/04/2023:
1. No evidence of pulmonary embolism or thoracic aortic dissection.
2. Mild airspace consolidation within the left lower lobe, which may represent pneumonia or subsegmental atelectasis. Small adjacent left pleural effusion.
3. Hazy groundglass opacity within the lingular segment, also suggestive of infectious or inflammatory alveolitis.
4. Mild right basilar subsegmental atelectasis.
5. Anterior wedging of several midthoracic vertebral bodies, which may represent acute or chronic compression fractures. Please correlate with symptoms in this area.
Subjective Data
-
Date of Service:
Date of Service: March 24, 2024
Chief Complaint: Pulmonary Follow Up and VTE Follow Up
Subjective:
Seen and evaluated today at bedside. Pulling 20-50 from incentive spirometer. Currently on 3 L/min nasal cannula. He currently denies shortness of breath. Still having left-sided lower rib/back pain, albeit improved. No chest pain, BALTAZAR,
abdominal pain, nausea, fevers or chills reported.
Review of Systems
General: Other (Negative unless mentioned above)
Objective Data
Data Reviewed
Vital Signs / I&O / Oxygen:
Vital Signs
Temp Pulse Resp BP Pulse Ox
98.6 F 89 18 118/67 93
03/24/24 07:00 03/24/24 07:00 03/24/24 07:00 03/24/24 07:00 03/24/24 07:00
Intake and Output
03/23/24 03/24/24 03/25/24
06:59 06:59 06:59
Intake Total 1771 / 1872 932 / 932
Output Total 550 / 550 225 / 225
Balance 1221 / 1322 707 / 707
SaO2 93
Nasal Cannula flow liters per 3
minute
Physical Exam
General: Respiratory Distress (negative), Comfortable, Chills (negative) and Sweats (negative)
HEENT: Normocephalic and Anicteric
Cardiovascular: S1-S2 and Peripheral Edema (negative)
Respiratory: Wheeze (negative), Crackles (Bibasilar), Rhonchi (negative) and Non-Labored Respirations
GI: Soft, Non Distended, Non Tender and Normal Bowel Sounds
Neurology: Awake, Alert and Tremors (negative)
Skin: Warm, Dry and Jaundice (negative)
Labs/Micro/Reports
Lab Data
03/24/24 04:21
03/23/24 02:11
Laboratory Results
03/23/24 03/23/24 03/23/24
08:44 15:33 22:07
APTT 87.8 H 66.6 H 92.4 H
03/24/24
04:21
APTT 79.8 H
--- NOTE | 2024-03-24 09:13 | PN.CDI ---
CDI
- -
CDI:
Physician Documentation Request
Admit Date: 03/22/24 12:56
Dear Doctor Yuri,
Please review the following and provide your response in the progress notes.
Clinical Indicators:
H+P, 03/22
#...CTA of chest with bilateral pulmonary emboli associated with right heart strain.
#Bilateral PE with heart rate strain:
#IV heparin drip
Based on the above and your clinical assessment, please clarify in the progress notes, the appropriate diagnosis, if significant, that supports the above abnormalities and additional evaluation, monitoring and/or treatment rendered:
Bilateral Pulmonary Embolism with Acute Cor Pulmonale
Right Heart Strain only
Other(please specify)
Use of terms such as suspected, likely, concern for, or probable (associated with a specific diagnosis that is being evaluated, monitored, or treated as if it exists) are acceptable and can be coded in the inpatient setting, when documented at the
time of discharge.
Thank you,
Patience Gardner RN BSN CCDS
CDI Specialist
please contact via tiger text
Please use your independent medical judgment in providing your response.
[2024-03-24 10:53] LABS: Hepatitis C Antibody Negative (Negative)
[2024-03-24] MEDS: HEPARIN 25000 UNITS/250 ML IV (11:35)
--- NOTE | 2024-03-24 14:04 | W.PN.HOSP.TC ---
Today's Communication/Plan
-
See note above
Assessment / Plan
Assessment / Plan
A/P:
Bilateral PE with possible heart rate strain:
Continue IV heparin drip and can transition to oral anticoagulant today ;check the coverage cost
Per pulmonary suspicion for subacute and no need for thrombolytics
He has remained hemodynamically stable
Checking Doppler lower extremities--> negative for DVT
Appreciated pulmonary consult
Check ECHO for RV fn/PSAP
Chest pain related to above and possible right infarcts:
Analgesia as needed
Acute hypoxic respiratory insufficiency:
Continue anticoagulation
Wean oxygen-check home o2 need
Incentive spirometry
PT eval
Left Pleural effusion:
F/u repeat chest x-ray
Factor V Leiden deficiency:
Hx of PE in past
Would recommend life long AC
Hyperlipidemia:
Continue statins
Obesity:
Lifestyle changes modification
DVT prophylaxis:
Currently on treatment
CODE STATUS:
Full code
Anticipated Discharge: Within 24 hours
Subjective/Interval History
-
Date of Service: March 24, 2024
Much improved with pleuritic chest pain. Not short of breath at rest.
Objective Data
-
Labs:
Laboratory Results
03/24/24
04:21
WBC 5.9
Hgb 11.9 L
Hct 33.5 L
Plt Count 164
APTT 79.8 H
Vital Signs:
Vital Signs
Temp Pulse Resp BP Pulse Ox
98.7 F 97 18 117/74 93
03/24/24 11:00 03/24/24 11:00 03/24/24 11:00 03/24/24 11:00 03/24/24 11:00
I&O
03/23/24 03/24/24 03/25/24
06:59 06:59 06:59
Intake Total 1771 / 1872 932 / 932
Output Total 550 / 550 225 / 225
Balance 1221 / 1322 707 / 707
Review of Systems
-
Constitutional: Denies Fever
Respiratory: Denies Cough
Neuro: Denies Dizzy
Physical Exam
-
General: No Apparent Distress
Respiratory: Non Labored Respirations; Negative Accessory Resp Muscle Use
Cardiac: Regular Rhythm and S1/S2
GI: Soft
Neuro: AO x 3
Psych: Calm; Negative Confused
Data Reviewed
-
Labs: Labs Reviewed by me
--- NOTE | 2024-03-24 16:53 | CM ---
Alert awake oriented patient who lives with his Eugenia who lives in a 2 story home with 4 step to enter and 12 steps to bed and bathroom. He is independent in driving and in all activities of daily living.He was offered VN he declined need.He is
on oxygen here. Will need home oxygen test.
No VN hx / No SNF history
Pharmacy [facility] [place]
PCP DR Virgil Barrett
PL[facility] Home Declined VN Watch for oxygen needs
[2024-03-24] MEDS: LIPITOR 10 MG PO (17:53)
[2024-03-25] MEDS: HEPARIN 25000 UNITS/250 ML IV (01:35)
[2024-03-25 03:30] VITALS: BP 114/65
[2024-03-25 06:00] VITALS: BMI 27.6
[2024-03-25 06:43] LABS: APTT 54.3 Sec (23.4-35.0)
[2024-03-25] MEDS: HEPARIN 8000 UNITS IV (07:11)
[2024-03-25 07:48] VITALS: BP 127/80
--- NOTE | 2024-03-25 09:50 | W.PN.PUL3 ---
Today's Communication / Plan
-
Transition to NOAC today
Case management consult to find if NOAC is affordable (preferred to start Eliquis)
Echo showed mild pulmonary hypertension - repeat echo in 4-6 weeks
Repeat imaging with CXR versus CT chest without contrast in 4 to 6 weeks to follow-up bilateral lower lobe infiltrates and LLL-pleural effusion, likely due to atelectasis
PT/OT
Pain control
Outpatient hematology consult given history of factor V Leiden and now with acute bilateral PE
Will also arrange for outpatient pulmonary follow-up for full PFTs
Wean down O2 as tolerated with goal SpO2 90% or greater; home O2 assessment showed he does not need O2 upon discharge
Pt being prepared for DC home today. No additional pulmonary recommendations at this time. We will now sign off. Please call back with any questions.
Assessment
-
68-year-old man with history of distant DVT, history of factor V Leiden deficiency. Not on chronic anticoagulation. Came complaining of 1 month history of progressive shortness of breath. Pleuritic type chest pain, shortness of breath. Found to
have acute bilateral pulmonary embolism on CT angiogram as well as possible left lower lobe pulmonary infarct
Impression:
Acute submassive pulmonary embolism-unprovoked with hx of factor V leiden
CT angiogram reviewed: Peripheral bilateral pulmonary embolism with RV strain. No central component
Recent COVID-vaccine
Negative troponin
Normal proBNP
Pleuritic type pain: Infiltrates on CAT scan suggestive of pulmonary infarct. Associated left pleural effusion.
Conditions present prior admission:
Dyslipidemia
Obesity
Factor V Leiden Leiden
Assessment and plan:
Bilateral pulmonary embolism with associated significant pleuritic type chest pain. Mild RV strain.
On further discussion symptoms have been more subacute. Started about 1 month and a half ago. Progressive shortness of breath. Worsened over the 4 to 6 days [employer] associated with pleuritic type chest pain.
No recent long car trips or plane rides; he denies currently having a sedentary lifestyle, and no personal history of malignancy
He has a history of factor V Leiden and does not follow with hematology
Mild sinus tachycardia
Normotensive-has remained hemodynamically stable through the hospital stay
Minimal oxygen requirements-not worsening.
-
Patient reports that symptoms worsened after obtaining COVID-vaccine 4 to 5 days ago.
Prior history of distant LLE DVT 6 years ago for which he completed 6 months of anticoagulation. Has history of factor V Leiden deficiency.
Multiple family members with factor V Leiden deficiency.
Reports being up-to-date with sex/age-appropriate cancer screening
-
Discussed with patient risks and benefits of thrombolysis. Based on CTA chest appearance, negative cardiac biomarkers, no hemodynamic instability we opted not to proceed with thrombolysis.
Lower extremity Dopplers: Negative for DVT bilaterally.
Wean down oxygen as able. Home oxygen assessment before discharge --> performed on 03/24/2024 showing mirna SpO2 94% with ambulation --> no home O2 needed . Part of his hypoxemia is due to left lower lobe pulmonary infarct with associated mild
pleural effusion.
Monitor hemodynamics-Telemetry
Continue heparin drip-follow PTT --> to transition to NOAC today assuming case management assist with findings affordable agent (prefer to start eliquis)
Echo performed on 03/24/2024 shows normal RV size and function with mild pulmonary hypertension with PASP 25-30 mmHg assuming an RAP of 3 mmHg --> repeat echo in 4-6 weeks
-
Analgesia for pleuritic type chest pain-improved.
Repeat CXR on 03/24/2024 shows mildly improved left-sided pleural effusion with persistent opacification in the left lower hemithorax; also increased parenchymal opacification of the right lower lobe, likely atelectasis
Eventually will need repeat imaging of the chest to document resolution of infiltrates that are likely pulmonary infarcts. Information has been left in the chart for follow-up
-
Pt being prepared for DC home today. No additional pulmonary recommendations at this time. We will now sign off. Please call back with any questions. Thank you for allowing us to be involved in the care of this patient.

Data reviewed:
-
CTA Chest 03/22/2024:
1). There are bilateral peripheral pulmonary emboli associated with right heart strain.There are bilateral peripheral pulmonary emboli involving right lower lobe, left lower lobe, right middle lobe and right upper lobe branches. No central component
2). There is moderate confluent parenchymal airspace disease at the basilar portions of the lingula and left lower lobe which may be pulmonary infarction or pneumonia with small associated left pleural effusion
3). There is interstitial airspace disease at the right lung base which may be dependent atelectasis or less likely pulmonary infarct
-
CT chest 04/04/2023:
1. No evidence of pulmonary embolism or thoracic aortic dissection.
2. Mild airspace consolidation within the left lower lobe, which may represent pneumonia or subsegmental atelectasis. Small adjacent left pleural effusion.
3. Hazy groundglass opacity within the lingular segment, also suggestive of infectious or inflammatory alveolitis.
4. Mild right basilar subsegmental atelectasis.
5. Anterior wedging of several midthoracic vertebral bodies, which may represent acute or chronic compression fractures. Please correlate with symptoms in this area.
Total time spent today was 38 minutes for this encounter. Time includes reviewing laboratory test/imaging results, reviewing pertinent medical records, obtaining and reviewing medical history, performing an appropriate exam, ordering medications,
tests and procedures. Time also includes documentation of this encounter, coordinating patient care and communicating with other healthcare professionals. Total time does not include separately billed tests performed on this date of service.
Subjective Data
-
Date of Service:
Date of Service: March 25, 2024
Chief Complaint: Pulmonary Follow Up and VTE Follow Up
Subjective:
Pt seen and evaluated this AM. No acute events reported from overnight. Denies SOB or chest pain. Eager to go home.
Review of Systems
General: Other (negative unless mentioned above)
Objective Data
Data Reviewed
Vital Signs / I&O / Oxygen:
Vital Signs
Temp Pulse Resp BP Pulse Ox
98.3 F 93 16 127/80 93
03/25/24 07:48 03/25/24 07:48 03/25/24 07:48 03/25/24 07:48 03/25/24 08:30
Intake and Output
03/24/24 03/25/24 03/26/24
06:59 06:59 06:59
Intake Total 932 / 932 720 / 720
Output Total 225 / 225
Balance 707 / 707 720 / 720
SaO2 93
Nasal Cannula flow liters per 1
minute
Physical Exam
General: Respiratory Distress (negative), Comfortable, Chills (negative) and Sweats (negative)
HEENT: Normocephalic and Anicteric
Cardiovascular: S1-S2 and Peripheral Edema (negative)
Respiratory: Wheeze (negative), Crackles (Bibasilar), Rhonchi (negative) and Non-Labored Respirations
GI: Soft, Non Distended, Non Tender and Normal Bowel Sounds
Neurology: Awake, Alert and Tremors (negative)
Skin: Warm, Dry and Jaundice (negative)
Labs/Micro/Reports
Lab Data
03/24/24 04:21
03/23/24 02:11
Laboratory Results
03/25/24
05:19
APTT 54.3 H
[2024-03-25] MEDS: ELIQUIS 10 MG PO (11:02)
[2024-03-25 11:14] VITALS: BP 140/82
--- NOTE | 2024-03-25 11:30 | CM ---
[facility] called for Fátima ospina It is $47.00 a month.
MD and pt notified.
Offered Vn he declined need.
will drive him home.
PLAN Home no needs
--- NOTE | 2024-03-25 11:53 | W.PN.HOSP.TC ---
Today's Communication/Plan
-
dc
Assessment / Plan
Assessment / Plan
A/P:
Bilateral PE with possible heart rate strain:
Per pulmonary suspicion for subacute and no need for thrombolytics
He has remained hemodynamically stable
Doppler lower extremities--> negative for DVT
ECHO Normal RV function,Mildly elevated pulmonary pressures.
Off of oxygen.
Medically stable for discharge.
Transition to oral Eliquis 10 mg twice a day for 7 days and 5 mg twice a day after. Patient advised to follow with pulmonary and as well as oncology because of factor V Leiden deficiency.
Chest pain related to above and possible right infarcts:
Resolved
Acute hypoxic respiratory insufficiency:
resolved
Factor V Leiden deficiency:
Hx of PE in past
Would recommend life long AC
Hyperlipidemia:
Continue statins
Obesity:
Lifestyle changes modification
DVT prophylaxis:
Currently on treatment
CODE STATUS:
Full code
More than 30 minutes spent in discharge including
Final examination of the patient
Summarizing hospital stay
Instructions for continuing care to all relevant caregivers
Preparation of discharge records, prescriptions, and referral forms
Total time spent (in minutes): 35
Anticipated Discharge: Today
Subjective/Interval History
-
Date of Service: March 25, 2024
voicing no specific complaints.
Off of oxygen. Denies shortness of breath or chest pain today.
Objective Data
-
Labs:
Laboratory Results
03/25/24 03/25/24
05:19 13:00
APTT 54.3 H Pending
Vital Signs:
Vital Signs
Temp Pulse Resp BP Pulse Ox
97.9 F 82 16 140/82 95
03/25/24 11:14 03/25/24 11:14 03/25/24 11:14 03/25/24 11:14 03/25/24 11:14
I&O
03/24/24 03/25/24 03/26/24
06:59 06:59 06:59
Intake Total 932 / 932 720 / 720
Output Total 225 / 225
Balance 707 / 707 720 / 720
Review of Systems
-
Abdomen/GI: Denies Bloody Stools or Black Stools
Neuro: Denies Dizzy
Physical Exam
-
General: Comfortable
Respiratory: Non Labored Respirations; Negative Accessory Resp Muscle Use
Cardiac: Regular Rhythm and S1/S2; Negative Tachycardic
Neuro: AO x 3
--- NOTE | 2024-03-25 11:59 | W.DCSUMMARY ---
Discharge Summary
Discharge Data
Date of Admission: 03/22/24
Date of Discharge: 03/25/24
-
Pending Results: No
Hospital Course
primary diagnosis:
Bilateral pulmonary embolism
Secondary diagnosis:
Hyperlipidemia
Factor V Leiden deficiency
Hospital course:
68-year-old male presented for shortness of breath. He had a COVID shot on the Sunday of the week when he got admitted. He also admitted that he was not feeling himself and over the past several days he has been feeling short of breath and also
had some pleuritic discomfort with deep breathing. On further evaluation it was noted that he had a bilateral pulmonary embolism including concern about pulmonary infarcts. There was concern of right heart strain on the CT of the chest. There was
no indication for thrombolysis. He was put on IV heparin and was admitted for further evaluation.
There was no evidence of DVT in the legs. Echo showed RV function to be normal but has mildly elevated right-sided pulmonary pressures of 25-30mmHg. with initiation of anticoagulation his chest pain disappeared and his breathing was better. He
was discharged home on Eliquis.
More importantly he has a history of factor V Leiden deficiency and a remote history of PE. He was advised to follow-up with hematology. I suspect he would require lifelong anticoagulation with second significant thromboembolic event.
Consultants on board:
Pulmonary-Zia Natarajan
Discharge Plan
-
Patient Disposition: Home (Routine Discharge)
Discharge Diagnosis/Procedures: bilateral PE
Diet: Low Cholesterol
Activity: As tolerated and No strenuous activity
Driving Restrictions: As prior to admission
Referrals:
Vipul Murillo DO [Active] - in four to six weeks (For follow up on Factor 5 Leiden deficiency)
Virgil Barrett MD [Family Provider] - in less than 1 week
Asa Ybarra MD [Active] - in three to four weeks
Prescriptions:
New
Eliquis 5 mg tablet
5 mg PO BID Qty: 86 0RF
Rx Instructions:
10mg twice a day for 6 1/2 days and then 5mg twice a day
Continued
cetirizine [Zyrtec] 10 mg Tablet
10 mg PO DAILYPRN PRN (Reason: allergies)
therapeutic multivitamin Tablet
1 tab PO DAILY
simvastatin 20 mg Tablet
20 mg PO QPM
acetaminophen [Tylenol] 325 mg Tablet
650 mg PO Q6HPRN PRN (Reason: mild pain)
Discharge Orders:
Discharge Patient (As Directed); Ordered 03/25/24
Ordered By: Joseph Perez
Discharge Date and Time
Print Language: SERBIAN
== END 2024-03-25 13:44 | disposition home or self-care (01) | DRG 176 ==
LOC: 3 WEST ACU 12:56
PROVIDERS: Registered Nurse; ADMITTING PHYSICIAN Hospitalist; ATTENDING PHYSICIAN Internal Medicine; CONSULT PHYSICIAN Internal Medicine Critical Care Medicine; EMERGENCY PHYSICIAN Emergency Medicine; FAMILY PHYSICIAN Family Medicine
DX: I26.99 Other pulmonary embolism without acute cor pulmonale (principal); D68.51 Activated protein C resistance; E66.9 Obesity, unspecified; Z68.27 Body mass index [BMI] 27.0-27.9, adult
CPT/HCPCS: 71045; 71275; 80048; 80053; 83880; 84484; 85025; 85027; 85379; 85610; 85730; 86803; 93005; 93306; 93970; 96365; 96366; 97116; 97162; 99285; Q9967

== ENCOUNTER → 2024-07-23 10:09 | Outpatient (REF) | payer OTHER, SELFPAY | LOC: HWRAD 10:09 | PROVIDERS: ATTENDING PHYSICIAN Internal Medicine Critical Care Medicine; FAMILY PHYSICIAN Family Medicine | DX: I26.99 Other pulmonary embolism without acute cor pulmonale (principal) | CPT/HCPCS: 71046 ==